=== PATIENT | male | born 1965 | race Caucasian/White ===

== ENCOUNTER 2018-06-23 05:17 | Emergency (ER) | payer SELFPAY ==
[~2018-06-23] VITALS: Ht 172.7 cm; Wt 77.1 kg
[~2018-06-23 05:17] MED LIST: ASPI81TA59 PO; HYDR-3237 PO; SIMV20TA PO
[2018-06-23 05:20] VITALS: BP 141/93
== END 2018-06-23 06:12 | disposition home or self-care (01) ==
LOC: ED 06:00
DX: S05.02XA Injury of conjunctiva and corneal abrasion without foreign body, left eye, initial encounter (principal); Z86.73 Personal history of transient ischemic attack (TIA), and cerebral infarction without residual deficits; X58.XXXA Exposure to other specified factors, initial encounter; Y93.89 Activity, other specified; Y92.89 Other specified places as the place of occurrence of the external cause; Y99.8 Other external cause status
CPT/HCPCS: 99283